=== PATIENT | female | born 1940 | race Caucasian/White ===

== ENCOUNTER 2018-10-20 18:16 | Inpatient (IN) ==
[2018-10-20] MEDS ORDERED: 0.9 % Sodium Chloride 1,000 ML IVC ONE (18:34)
[2018-10-20] MEDS ORDERED: *HR* Metoprolol 5 MG/5 ML VIAL IVP ONE (18:34)
--- NOTE | 2018-10-20 18:52 | Emergency Department Note ---
Disposition Clinical Impression: Hypertensive emergency, Pre-syncope Disposition: Admitted As Inpatient Forms: ED Satisfaction Letter Time of Disposition: 19:59 General Adult HPI - General Chief complaint: ED Weakness Stated complaint: weakness Time Seen by Provider: 10/20/18 18:21 Source: patient, EMS Mode of arrival: EMS Limitations: no limitations Nursing Notes Reviewed: Yes Vital Signs Reviewed: Yes - History of Present Illness HPI Narrative: 78 yo female with past medical history of hypertension, COPD and anxiety presents to the emergency department with the chief complaint of weakness when standing. Patient states that she has had hypertension for many years and takes 3-4 medications on a daily basis to treat this. She was recently taken off her Xanax and has not had it over the past week because her doctor would not refill her prescription. She denies chest pain, shortness of breath, abdominal pain, nausea and vomiting. She has been taking her at-home blood pressure medications but knows her blood pressure has been running higher than normal thinks it could be secondary to her lack of Xanax. She is completely asymptomatic at this time will she is lying flat. Pain Scale: 0 - Related Data Home Medications Medication Instructions Recorded Confirmed Unable To Obtain [Unable to Obtain] 10/20/18 10/20/18 Allergies Allergy/AdvReac Type Severity Reaction Status Date / Time No Known Allergies Allergy Verified 10/20/18 18:36 All systems ED: reviewed and negative except as stated. Review of Systems: As Per HPI Constitutional: Reports: weakness. Denies: fever, chills Eyes: Denies: vision change Cardiovascular: Denies: chest pain, palpitations, dyspnea on exertion Respiratory: Denies: cough, dyspnea, wheezes Gastrointestinal: Denies: abdominal pain, nausea, vomiting Genitourinary: Denies: dysuria, hematuria Musculoskeletal: Denies: back pain, neck pain Integumentary: Denies: rash Neurological: Reports: weakness. Denies: headache, numbness, paresthesias, confusion, abnormal gait Endocrine: Reports: fatigue Past Medical History - Past Medical History Attestation: Yes The following information was validated with the patient. Source: patient Medical history: Reports: asthma, COPD, hypertension Psychiatric history: Reports: anxiety - Social History Smoking Status: Former smoker Smokeless Tobacco Status: No Alcohol use: Reports: none Drug use: Reports: none Physical Exam - General Limitations: no limitations General appearance: alert, in no apparent distress - Head Head exam: atraumatic, normocephalic - Eye Eye exam: Present: normal appearance, EOMI - ENT ENT exam: normal exam, normal oropharynx - Neck Neck exam: Present: normal inspection. Absent: tenderness, lymphadenopathy - Chest Chest inspection: Present: normal inspection. Absent: tenderness, rash - Respiratory Respiratory exam: Present: normal lung sounds bilaterally. Absent: wheezes - Cardiovascular Cardiovascular exam: Present: regular rate, normal rhythm - Abdominal Exam Abdominal exam: Present: soft, Non-Tender. Absent: distention, guarding, rebound, rigidity - Extremities Exam Extremities exam: Present: normal inspection. Absent: tenderness, pedal edema, calf tenderness - Neurological Exam Neurological exam: Present: alert, oriented X3 - Psychiatric Psychiatric exam: Present: normal affect, normal mood - Skin Skin exam: Present: warm, dry, intact Course Vital Signs Temperature 97.8 F 10/20/18 18:26 Pulse Rate 60 10/20/18 18:26 Respiratory Rate 18 10/20/18 18:26 Blood Pressure 221/81 10/20/18 18:26 O2 Sat by Pulse Oximetry 97 10/20/18 18:26 Temperature 97.8 F 10/20/18 18:26 Pulse Rate 57 10/20/18 19:16 Respiratory Rate 18 10/20/18 19:16 Blood Pressure 245/82 10/20/18 19:16 O2 Sat by Pulse Oximetry 98 10/20/18 19:16 Oxygen Delivery Oxygen Delivery Room Air Medical Decision Making - [facility] Narrative Medical decision making narrative: Patient presented with the complaint of weakness and feeling as though she can pass out when she stands up. She has been having difficulty with her blood pressure and she is hypertensive now. We will do a cardiac workup on this patient and give her a dose of hydralazine to try to control her blood pressure. 1954 - patient's EKG shows some subtle ST segment depressions. Her lab work is unremarkable with the exception of a low potassium level. We will replete the potassium. Her blood pressure still elevated at 240/87. We will start the patient on a Cardene drip and admitted to the hospitalist for further workup of her hypertensive emergency. - Medical Records Medical records reviewed: Yes I reviewed the patient's medical records. - Lab Data Lab results reviewed: Yes I reviewed the patient's lab results. Result diagrams: 10/20/18 18:41 10/20/18 18:41 Lab Results 10/20/18 10/20/18 Range/Units 18:41 18:41 WBC 10.4 (4.3-11.1) K/mcL RBC 4.62 (3.82-4.97) M/mcL Hgb 14.0 (11.5-15.4) g/dL Hct 40.5 (35.3-44.9) % MCV 87.7 (83.0-100.0) fL MCH 30.3 (28.0-33.3) pg MCHC 34.6 (31.6-35.5) g/dL RDW 12.6 (11.5-14.5) % Plt Count 267 (140-400) K/mcL MPV 9.2 L (9.4-12.4) fL Immature Gran % 0.5 (0-4) % Seg Neutrophils % 63.2 % Lymphocytes % 23.8 % Monocytes % 11.3 % Eosinophils % 0.6 % Basophils % 0.6 % Neutrophils # 6.6 (1.6-8.9) K/mcL Lymphocytes # 2.5 (0.6-4.6) K/mcL Monocytes # 1.2 (0.0-1.3) K/mcL Eosinophils # 0.1 (0.0-0.6) K/mcL Basophils # 0.1 (0.0-0.2) K/mcL Sodium 139 (136-145) mEq/L Potassium 2.7 L (3.5-5.1) mEq/L Chloride 103 (98-107) mEq/L Carbon Dioxide 28 (23-29) mEq/L BUN 10 (8-23) mg/dL Creatinine 0.78 (0.60-1.20) mg/dL Est GFR ( Amer) > 60 (> 60) Est GFR (Non-Af Amer) > 60 (> 60) BUN/Creatinine Ratio 13 (6-26) Glucose 113 H (70-105) mg/dL Calculated Osmolality 288 (280-300) Calcium 9.1 (8.6-10.3) mg/dL Magnesium 2.0 (1.6-2.6) mg/dL Troponin I < 0.03 (< 0.04) ng/mL - Radiology Data Radiology results reviewed: Yes I reviewed the patient's radiology results. - EKG Data EKG #1 EKG attestation: Yes I reviewed and interpreted this EKG. EKG results narrative: EKG obtained at 18:29 on 10/20/2018 Heart rate 59 bpm, PA interval 178, QRS duration 102, QTC 500, QTC 496 Sinus rhythm with borderline repolarization abnormality and borderline QT prolongation. No signs of ST segment elevation. There are minor ST segment depressions in the lateral and inferior leads. No old EKG for comparison at this time. Attestation Statement - Attestation Attestation: I have seen this patient with the resident physician, I have personally evaluated this patient. I had reviewed the chart and document dictation by the resident physician and aM in agreement with the information documented by the resident physician. Please see documentation by the resident physician for complete chart including past medical history, family medical history, review of systems, current history and physical and laboratory and imaging studies. I was present for all procedures, provided direct supervision for all procedures, was present for the entirety of all procedures and provided direct guidance during the procedures. Please see documentation by the resident physi stu for any procedures performed. I have reviewed all interpretations of EKGs, and reviewed all EKGs performed on patient's as well. I have also reviewed reports of imaging as provided by radiology. Patient presented to the emergency department with chief complaint of not feeling well for the last several days, she states that she seemed to not felt well since her doctor stopped her Xanax and would not give her a refill she has been on this for many years, she states that however over the last couple of days she has felt worse especially with standing up every time she stands up she feels dizzy like she is going to pass out and she gets diaphoretic. She states that was worse today. Patient states that her blood pressure is also been running high at home. She denies fevers chills headache neck pain chest pain or shortness of breath she denies unilateral numbness or weakness but states she just does not feel well. She denies significant urinary symptoms she denies abdominal pain. She denies pain or back. On physical examination alert oriented 3 nontoxic in appearance cranial nerves are intact no focal neurologic findings normal speech. Cardiovascular regular r ate and rhythm although heart rate is borderline bradycardic between 55 and 60, no obvious murmurs rubs or gallops lungs are clear abdomen is soft and nontender without palpable or pulsatile mass. Equal pulses in all 4 extremities skin is warm dry without rash or petechiae. EKG was normal sinus rhythm, sinus bradycardia, borderline ST depression noted in the lateral leads, no old EKG for comparison. Basic laboratory studies were within acceptable limits apart from hypokalemia of 2.7 supplemented with potassium. Patient is typically on hydralazine she was noted to be hypertensive she was gi casa a dose of hydralazine she had not taken it today, and her blood pressure did not significant improve she remained hypertensive with blood pressures of approximately 240/80 at which time she was initiated on a Cardene drip. Patient was admitted to the hospital for further evaluation and management. Total critical care time as provided by myself excluding any procedures performed was 30 minutes in evaluation and management of hypertensive urgency malignant hypertension, and jaws weakness.
[2018-10-20 19:11] LABS: Basophils # 0.1 K/mcL (0.0-0.2); Basophils % 0.6 %; Eosinophils # 0.1 K/mcL (0.0-0.6); Eosinophils % 0.6 %; Hematocrit 40.5 % (35.3-44.9); Immature Granulocytes % 0.5 % (0-4); Lymphocytes # 2.5 K/mcL (0.6-4.6); Lymphocytes % 23.8 %; Mean Corpuscular HGB Conc 34.6 g/dL (31.6-35.5); Mean Corpuscular Hemoglobin 30.3 pg (28.0-33.3); Mean Corpuscular Volume 87.7 fL (83.0-100.0); Mean Platelet Volume 9.2 fL (9.4-12.4); Monocytes # 1.2 K/mcL (0.0-1.3); Monocytes % 11.3 %; Neutrophils # 6.6 K/mcL (1.6-8.9); Platelet Count 267 K/mcL (140-400); Red Blood Count 4.62 M/mcL (3.82-4.97); Red Cell Distribution Width 12.6 % (11.5-14.5); Segmented Neutrophils % 63.2 %; White Blood Count 10.4 K/mcL (4.3-11.1)
[2018-10-20 19:35] LABS: BUN/Creatinine Ratio 13 (6-26); Blood Urea Nitrogen 10 mg/dL (8-23); Calcium 9.1 mg/dL (8.6-10.3); Carbon Dioxide 28 mEq/L (23-29); Chloride 103 mEq/L (98-107); Glucose 113 mg/dL (70-105); Osmolality,Calculated 288 (280-300); Potassium 2.7 mEq/L (3.5-5.1); Sodium 139 mEq/L (136-145); Troponin I < 0.03 ng/mL (< 0.04); eGFR For African Americans > 60 (> 60); eGFR For Non-African Americans > 60 (> 60)
[2018-10-20] MEDS: niCARdipine 20 MG in 0.9 % Sodium Chloride 192 ML IVC SCH (21:26)
[2018-10-21] MEDS: niCARdipine 20 MG in 0.9 % Sodium Chloride 192 ML IVC SCH ×2 (01:57→07:09)
[2018-10-21] MEDS ORDERED: Naloxone 0.4 MG/ML INJ IVP PRN (03:13)
--- NOTE | 2018-10-21 03:20 | Internal Med History&Physical ---
Date of Encounter: 10/21/18 Time of Encounter: 03:04 Internal Medicine - H&P: HPI Chief complaint: Hypertension Admitted From: Emergency Dept Plans for Post Hospital Care: Home History of present illness: Ms. Gonzalez is a 78 year old female Patient presented to the emergency room initially for weakness at home, found to have elevated blood pressure. She has been on medicines at home for her blood pressure, and has a home blood pressure monitor. She does not remember what it was when she checked it at home, but she remembers that her blood pressure was elevated. She has been seen by a primary care physician, and was recently taken off her home Xanax medication. She had an appointment to follow-up with the ysician on October 21 however she came to the emergency room on the instead for further evaluation of her symptoms. She thinks because she has not been on her Xanax that her blood pressure has been difficult to control. In the emergency room patient's initial vital signs: Blood pressure 221/81 o therwise within normal limits CBC: Within normal limits BMP: Notable for a potassium of 2.7, Magnesium 2.0 Troponin undetectable BNP 335 Chest x-ray: Increased lung markings bilaterally She was given a liter of IV fluids, a dose of metoprolol 5 mg then a dose of hydralazine 10 mg. Her blood pressure did not respond. She was started on a Cardene. She is also given 40 mEq of potassium. She was admitted to the hospital for further monitoring. Upon my evaluation, patient is resting comfortably in the hospital bed in no acute distress. She denies chest pain, abdominal pain, nausea, vomiting, diarrhea and constipation. She denies dizziness and vision changes. She indicates that she did have some falls at home previously and was started on different medications that was thought to be contributing. She did have her Xanax discontinued because she says she missed her appointment with her doctor and he did not want to fill it until he saw her again. She is a full code. Past Med Surg Social Fam HX - Past Medical History Medical history: asthma, COPD, hypertension Psychiatric history: anxiety - Past Surgical History Surgical History: hysterectomy - Social History Smoking Status: Former smoker Smokeless Tobacco Status: No Alcohol use: none Drug use: none - Family History Mother Living Status: Still Living Hx Family Cardiac Disorders: Yes (HTN) Maternal Grandmother Hx Family Cardiac Disorders: Yes (HTN) Internal Medicine - H&P: Meds Aspirin [Lo-Dose Aspirin EC] 81 mg PO DAILY 10/21/18 [History] Budesonide/Formoterol 80/4.5 [Symbicort 80/4.5] 0 gm IH BIDR PRN 10/21/18 [History] Cholecalciferol (D-3) [Vitamin D] 5,000 unit PO Q1W 10/21/18 [History] Cyclobenzaprine [Flexeril] 10 mg PO DAILY 10/21/18 [History] FLUoxetine HCl [PROzac] 20 mg PO DAILY 10/21/18 [History] Hydralazine HCl 50 mg PO TID 10/21/18 [History] Irbesartan [Avapro] 300 mg PO DAILY 10/21/18 [History] Metoprolol Tartrate 75 mg PO BID 10/21/18 [History] Rosuvastatin Calcium [Crestor] 10 mg PO DAILY 10/21/18 [History] raNITIdine HCl [Zantac] 150 mg PO BID 10/21/18 [History] Allergy/AdvReac Type Severity Reaction Status Date / Time No Known Allergies Allergy Verified 10/20/18 18:36 All Systems PM: A 10-system review of systems was performed and is negative for pertinent findings except as documented above in the HPI. - Constitutional Vitals: Temp Pulse Resp BP Pulse Ox 97.8 F 63 14 165/71 95 10/20/18 18:26 10/21/18 02:45 10/20/18 23:30 10/21/18 02:45 10/21/18 02:45 General appearance: Present: cooperative, A&O X 3, pleasant, no acute distress, answers questions appropriately Exam: - - Head Head exam: Present: normal inspection - Eye Eye exam: Present: EOMI, normal appearance - Respiratory Respiratory exam: Present: CTAB. Absent: rales, respiratory distress, rhonchi, wheezes - Cardiovascular Cardiovascular exam: Present: RRR. Absent: diastolic murmur, systolic murmur - GI/Abdominal GI/Abdominal exam: Present: normal bowel sounds, soft. Absent: tenderness - Extremities Exam Extremities exam: Present: warm, radial pulses palpable and symmetrical. Absent: calf tenderness, pedal edema, tenderness - Neurological Exam Neurological exam: Present: motor sensory deficit, no focal deficits, strengths equal and symetr throughout. Absent: facial droop, speech deficit - Skin Skin exam: Present: dry, normal color, warm Internal Med - H&P Results - Labs CBC & Chem 7: 10/20/18 18:41 10/20/18 18:41 Labs: Short CBC 10/20/18 Range/Units 18:41 WBC 10.4 (4.3-11.1) K/mcL Hgb 14.0 (11.5-15.4) g/dL Hct 40.5 (35.3-44.9) % Plt Count 267 (140-400) K/mcL Neutrophils # 6.6 (1.6-8.9) K/mcL BMP 10/20/18 18:41 Sodium 139 Potassium 2.7 L Chloride 103 Carbon Dioxide 28 BUN 10 Creatinine 0.78 Glucose 113 H Calcium 9.1 Cardiac Enzymes 10/20/18 Range/Units 18:41 Troponin I < 0.03 (< 0.04) ng/mL - Impressions ITS Impressions Chest X-Ray 10/20/18 18:34 IMPRESSION: Increased lung markings at the bilaterally, may be related to mild bronchitis. D/ / Roni Horton MD / Roni Horton MD Interpreting Provider: Roni Horton MD - Assessment and Plan (1) Hypertensive emergency Current Visit: Yes Status: Acute Assessment and plan: Blood pressure elevated in the emergency room at 221/81. Patient was started on a Cardene drip, currently her blood pressure is 167/66. She does have a history of hypertension, and takes oral medications at home including hydralazine, Irbesartan and metoprolol. Continue Cardene drip Monitor blood pressures closely Consider adjusting home medications (2) Hypokalemia Current Visit: Yes Status: Acute Assessment and plan: Potassium was 2.7 in the emergency room. She was given 40 mEq in the emergency room. Repeat labs in the morning Replete as needed (3) Pre-syncope Current Visit: Yes Status: Acute Assessment and plan: Patient had some falls at home previously but also felt dizzy over the last day or 2. Could be secondary to elevated blood pressure and medication adjustments. Treating hypertension as above Consider physical therapy consultation patient still having syncopal episodes (4) DVT prophylaxis Current Visit: Yes Status: Acute Assessment and plan: SCDs - Time Spent With Patient Total time spent is greater than 50% in coordination of care (as documented) at patient's floor/unit and/or counseling patient: Greater than 35 minutes
[2018-10-21] MEDS: Acetaminophen 325 MG TABLET PO PRN ×3 (03:30→23:40)
[2018-10-21 04:39] LABS: Hematocrit 39.2 % (35.3-44.9); Hemoglobin 13.2 g/dL (11.5-15.4); Mean Corpuscular HGB Conc 33.7 g/dL (31.6-35.5); Mean Corpuscular Hemoglobin 29.7 pg (28.0-33.3); Mean Corpuscular Volume 88.3 fL (83.0-100.0); Mean Platelet Volume 9.1 fL (9.4-12.4); Platelet Count 226 K/mcL (140-400); Red Blood Count 4.44 M/mcL (3.82-4.97); Red Cell Distribution Width 12.6 % (11.5-14.5); White Blood Count 11.5 K/mcL (4.3-11.1)
[2018-10-21 05:00] LABS: BUN/Creatinine Ratio 12 (6-26); Blood Urea Nitrogen 11 mg/dL (8-23); Calcium 8.7 mg/dL (8.6-10.3); Carbon Dioxide 25 mEq/L (23-29); Chloride 106 mEq/L (98-107); Glucose 108 mg/dL (70-105); Osmolality,Calculated 294 (280-300); Potassium 2.9 mEq/L (3.5-5.1); Sodium 142 mEq/L (136-145); eGFR For African Americans > 60 (> 60); eGFR For Non-African Americans > 60 (> 60)
[2018-10-21] MEDS ORDERED: Cholecalciferol (D-3) 1,000 UNIT TABLET PO SCH (07:30)
[2018-10-21] MEDS: hydrALAZINE 25 MG TABLET PO SCH ×3 (08:16→20:00)
[2018-10-21] MEDS: Aspirin Enteric Coated 81 MG Tablet PO SCH (08:17)
[2018-10-21] MEDS: Famotidine 20 MG TABLET PO SCH ×2 (08:17→20:01)
--- NOTE | 2018-10-21 09:53 | Event Note ---
Date of Encounter: 10/21/18 Time of Encounter: 08:00 Patient was seen and examined bedside. Reports that she was found to have elevated blood pressures at home with her blood pressure machine and its been going on for at least the past week. She reports that she was recently taken off her Xanax by her primary care physician and she has been unable to get in touch with him over the phone so she has made an appointment for October 21. Yesterday her blood pressures continue to be elevated despite her taking all her medications as prescribed so she decided to come to the emergency department for further evaluation. She denies chest pain, shortness of breath, nausea, vomiting or diarrhea Vital signs reviewed Regular rate and rhythm, S1 and S2, could not appreciate any murmurs Chest clear to auscultation bilaterally No acute distress, alert and oriented 3, moves all extremities No edema of the lower extremities A/P Hypertensive urgency BP on arrival 221/81 Hypokalemia was replaced Was started on the cart up in drip will taper off Continue all of home medications will adjust as per BP is Echocardiogram
[2018-10-21] MEDS: FLUoxetine 20 MG CAPSULE PO SCH (10:00)
[2018-10-21] MEDS: Budesonide/Formoterol 80/4.5 MDI IH SCH ×2 (10:53→20:31)
[2018-10-21] MEDS: *HR* Heparin 5,000 UNIT/ML VIAL SQ SCH ×2 (11:30→20:05)
--- NOTE | 2018-10-21 12:40 | Electrocardiograph Report ---
[address] [place], [place] [address] Test Date: 2018-10-20 Pat Name: Lizz Gonzalez Department: [id number] Room: 2N03 Gender: F Network Communications Engineer: : [id number] Requested By: Janice Machado Order Number: [id number] Reading MD: Carmelina Bowie Measurements Intervals [place] Rate: 59 P: 79 [place]: 178 QRS: 57 QRSD: 102 T: 79 QT: 500 QTc: 496 Interpretive Statements Sinus rhythm Borderline repolarization abnormality Borderline prolonged QT interval Electronically Signed On 10-21-2018 12:39:06 EDT by Carmelina Bowie
[2018-10-21 22:03] LABS: Bilirubin,Urine Negative (Negative); Blood,Urine Negative (Negative); Clarity,Urine Clear (Clear); Color,Urine Yellow (Yellow); Glucose,Urine (UA) Normal (Normal); Ketones,Urine Negative (Negative); Leukocyte Esterase,Urine Negative (Negative); Nitrite,Urine Negative (Negative); Protein,Urine Trace mg/dL (Neg-Trace); Specific Gravity,Urine 1.015 (1.010-1.025); Urobilinogen,Urine Normal (Normal)
[2018-10-21] MEDS: *HR* Metoprolol 5 MG/5 ML VIAL IVP PRN (23:41)
[2018-10-21] MEDS ORDERED: ALPRAZolam 1 MG TABLET PO ONE (23:42)
[2018-10-22 01:49] LABS: Hematocrit 36.1 % (35.3-44.9); Mean Corpuscular HGB Conc 33.2 g/dL (31.6-35.5); Mean Corpuscular Hemoglobin 30.5 pg (28.0-33.3); Mean Corpuscular Volume 91.9 fL (83.0-100.0); Mean Platelet Volume 9.3 fL (9.4-12.4); Platelet Count 212 K/mcL (140-400); Red Blood Count 3.93 M/mcL (3.82-4.97); Red Cell Distribution Width 12.7 % (11.5-14.5); White Blood Count 9.9 K/mcL (4.3-11.1)
[2018-10-22 02:09] LABS: BUN/Creatinine Ratio 20 (6-26); Blood Urea Nitrogen 16 mg/dL (8-23); Calcium 9.1 mg/dL (8.6-10.3); Carbon Dioxide 24 mEq/L (23-29); Chloride 107 mEq/L (98-107); Glucose 148 mg/dL (70-105); Osmolality,Calculated 292 (280-300); Potassium 3.7 mEq/L (3.5-5.1); Sodium 139 mEq/L (136-145); eGFR For African Americans > 60 (> 60); eGFR For Non-African Americans > 60 (> 60)
[2018-10-22] MEDS: *HR* Heparin 5,000 UNIT/ML VIAL SQ SCH ×3 (03:25→19:33)
[2018-10-22] MEDS: NIFEdipine 10 MG CAPSULE PO SCH ×3 (08:01→19:34)
[2018-10-22] MEDS: Aspirin Enteric Coated 81 MG Tablet PO SCH (08:02)
[2018-10-22] MEDS: Furosemide 20 MG TABLET PO SCH (08:02)
[2018-10-22] MEDS: Famotidine 20 MG TABLET PO SCH ×2 (08:02→19:34)
[2018-10-22] MEDS: FLUoxetine 20 MG CAPSULE PO SCH (08:03)
[2018-10-22] MEDS ORDERED: Nitroglycerin 0.4 MG TAB.SUBL SL PRN (08:08)
[2018-10-22] MEDS: Budesonide/Formoterol 80/4.5 MDI IH SCH ×2 (08:09→20:08)
[2018-10-22] MEDS: *HR* Metoprolol 5 MG/5 ML VIAL IVP PRN (08:21)
--- NOTE | 2018-10-22 13:20 | Internal Med Progress Note ---
Hospitalist Progress Note - Encounter Date of Encounter: 10/22/18 Time of Encounter: 08:00 - Subjective Interval History: Patient was seen and examined at bedside. Denies dizziness, nausea, vomiting or diarrhea. Denies chest pain or palpitations. With that she felt dizzy at home secondary to the Flexeril that was started by her primary care physician which was later stopped. She denies vision changes or shortness of breath. Tolerating by mouth diet. - Exam Vitals: Temp Pulse Resp BP Pulse Ox 99.3 F 85 16 165/74 96 10/22/18 07:44 10/22/18 10:56 10/22/18 10:56 10/22/18 10:56 10/22/18 08:12 Exam: General: Patient is alert, oriented, no acute distress, Head: atraumatic, normocephalic, Eye: normal appearance, PERRL, no scleral icterus, no conjunctival injection ENT: mucous membranes moist, normal external ear exam Neck: normal inspection, trachea midline, full ROM, Chest: normal inspection, symmetric chest rise Respiratory: Good respiratory effort. Bilateral breath sounds are clear without wheezing, crackles, or rhonchi. Cardiovascular: Regular rate and rhythm. s1 and s2 No clicks, rubs, gallops, or murmors. Abdomen: Bowel sounds present normoactive x-4 quadrants. Abdomen is soft, nondistended. no Epigastric tenderness. No guarding or rebound. No organomegaly noted, obese musculoskeletal: Spontaneously moving all extremities. no edema, no calf tenderness Skin: warm, dry, intact. Neuro: Alert and oriented x3. Sensation light touch intact. Cranial nerves 2- 12 is intact. Not aphasic, gait is steady, rapid hand movements intact, [id number] intact, Psych: Patient's affect is normal - Assessment and Plan (1) Hypertensive emergency Current Visit: Yes Status: Acute Assessment and Plan: Blood pressure elevated in the emergency room at 221/81. Patient was started on a Cardene drip- chest discontinued metoprolol was changed to Coreg for better blood pressure control Hydralazine was discontinued and she was started on Procardia we will adjust as per blood pressure She was started on Lasix 20 mg by mouth daily Continue with home dose losartan Her blood pressure has improved to 165/74 If blood pressure continues to remain unstable will consult nephrology (2) Pre-syncope Current Visit: Yes Status: Acute Assessment and Plan: Patient had some falls at home previously but also felt dizzy over the last day or 2 and reports that this was after she started taking Flexeril All her symptoms resolved after she stopped taking Flexeril Physical therapy consulted (3) Hypokalemia Current Visit: Yes Status: Acute Assessment and Plan: Replaced and resolved (4) DVT prophylaxis Current Visit: Yes Status: Acute Assessment and Plan: heparin sc - Time Spent with Patient Total time spent is greater than 50% in coordination of care (as documented) at patient's floor/unit and/or counseling patient: 25 - 35 minutes Plan of Care Discussed with: patient Internal Medicine: Result - Labs CBC & Chem 7: 10/22/18 00:38 10/22/18 00:38 Labs: Short CBC 10/22/18 Range/Units 00:38 WBC 9.9 (4.3-11.1) K/mcL Hgb 12.0 (11.5-15.4) g/dL Hct 36.1 (35.3-44.9) % Plt Count 212 (140-400) K/mcL BMP 10/21/18 10/22/18 16:26 00:38 Sodium 139 Potassium 4.5 D 3.7 Chloride 107 Carbon Dioxide 24 BUN 16 Creatinine 0.82 Glucose 148 H Calcium 9.1 Urine 10/21/18 Range/Units 21:40 Urine Color Yellow (Yellow) Urine Clarity Clear (Clear) Urine pH 7.0 (5.0-8.0) pH Units Ur Specific [place] 1.015 (1.010-1.025) Urine Protein Trace (Neg-Trace) mg/dL Urine Glucose (UA) Normal (Normal) mg/dL - Impressions Impressions Echocardiogram 10/21/18 09:52 Impressions: LVEF 60-65%. Normal LV chamber size and function. Basal sigmoid septum. Mild left ventricular diastolic dysfunction. Normal right ventricular structure and function. No significant valvular dysfunction. Mild-moderate pulmonary hypertension. Estimated RVSP is 45 mmHg. Left Ventricular Wall Motion: Rest Echo Findings All wall segments showed normal motion. Findings: Study Quality * Technically adequate exam. ECG Findings * Normal sinus rhythm. Left Ventricle * LVEF 60-65%. * Normal LV chamber size and function. * Basal sigmoid septum. * Mild left ventricular diastolic dysfunction. Right Ventricle * Normal right ventricular structure and function. Left Atrium * Moderately dilated left atrium. Right Atrium * Normal right atrial size. Interatrial Septum * Interatrial septum not well evaluated. Aortic Valve * Trileaflet aortic valve. * No aortic regurgitation. * No aortic stenosis. Mitral Valve * Normal mitral valve structure and function. * No mitral stenosis. * Trace mitral regurgitation. Tricuspid Valve * Normal tricuspid valve structure and function. * Trace tricuspid regurgitation. * Mild-moderate pulmonary hypertension. * Estimated RVSP is 45 mmHg. * Estimated RA pressure is 5 mmHg. Pulmonic Valve * Normal pulmonic valve structure and function. * No pulmonic regurgitation. Aorta * Normally sized aortic root. Pericardium * The pericardium appears normal. IVC * Normal IVC dimensions and inspiratory collapse. Pulmonary Artery * Normal visualized portions of the main pulmonary artery. Consult Discharge Plan - Plan Referrals: Vick Ortega MD [Primary Care Provider] - (Office will call patient at home with follow up appointment Per Laura)
[2018-10-22] MEDS: Acetaminophen 325 MG TABLET PO PRN (19:34)
[2018-10-23] MEDS: *HR* Heparin 5,000 UNIT/ML VIAL SQ SCH ×2 (05:52→13:05)
[2018-10-23] MEDS: Acetaminophen 325 MG TABLET PO PRN (06:00)
[2018-10-23] MEDS: Budesonide/Formoterol 80/4.5 MDI IH SCH (07:29)
[2018-10-23] MEDS: Aspirin Enteric Coated 81 MG Tablet PO SCH (07:56)
[2018-10-23] MEDS: FLUoxetine 20 MG CAPSULE PO SCH (07:56)
[2018-10-23] MEDS: Furosemide 20 MG TABLET PO SCH (07:56)
[2018-10-23] MEDS: Famotidine 20 MG TABLET PO SCH (07:56)
[2018-10-23 08:28] LABS: Estimated Average Glucose 105 mg/dl
[2018-10-23] MEDS ORDERED: NIFEdipine XL (24 HR) 60 MG TAB.ER.24 PO SCH (09:00)
--- NOTE | 2018-10-23 13:09 | Nephrology Consult Note ---
Date of Encounter: 10/23/18 Time of Encounter: 10:40 Assessment and Plan (1) Hypertension Status: Acute Acutely elevated on chronic hypertension. At this early point, I suspect the elevation today is multifactorial from all of the NSAIDs she was taking just prior to admission, and her back/ankle pains. I see that she is being discharged, which is reasonable since her BPs are improving already, and I be happy to see her for outpatient follow-up to arrange for further workup of any potential secondary hypertension etiologies. Discussed with the hospitalist. Thank you for having consulted the [facility]. Qualifiers: Hypertension type: unspecified Qualified Code(s): I10 - Essential (primary) hypertension History of Present Illness - Reason for Consult Consult date: 10/23/18 accelerated hypertension Requesting physician: Masha Bunn - Chief Complaint HTN - History of Present Illness The patient was a very pleasant 78-year-old female with a past medical history of hypertension and etc. She has been in the hospital for a few days, and Nephrology was consulted today to help assist with blood pressure. She did not affirm having a headache, but but did report having long-standing back pain, which she thinks is worsening her blood pressure. She also did not affirm having seen any previous web analytics developer, but she did affirm that she was taking NSAIDs. She recently hurt her ankle as well. She is not had previous gout. Her PCP is Dr. Valladares in [place], [place]. She did not affirm having edema either. Family History: She did not affirm having any first-degree relatives with a history of ESRD Past Med Surg Social Fam HX - Past Medical History Medical history: asthma, COPD, hypertension Psychiatric history: anxiety - Past Surgical History Surgical History: hysterectomy - Social History Smoking Status: Former smoker Smokeless Tobacco Status: No Alcohol use: none Drug use: none - Family History Mother Living Status: Still Living Hx Family Cardiac Disorders: Yes (HTN) Maternal Grandmother Hx Family Cardiac Disorders: Yes (HTN) Medications and Allergies Albuterol Sulfate [Ventolin Hfa] 2 puff PO Q4H PRN 10/21/18 [History] Aspirin [Lo-Dose Aspirin EC] 81 mg PO DAILY 10/21/18 [History] Budesonide/Formoterol 80/4.5 [Symbicort 80/4.5] 2 puff IH BIDR PRN 10/21/18 [History] Ergocalciferol (VITAMIN D2) [Vitamin D2] 50,000 units PO QWEEK 10/21/18 [History] FLUoxetine HCl [Prozac] 20 mg PO DAILY 10/21/18 [History] Irbesartan [Avapro] 300 mg PO DAILY 10/21/18 [History] Nitroglycerin [Nitrostat] 0.4 mg SL Q5MIN PRN MDD X3 DOSES CALL 911 10/21/18 [History] Rosuvastatin Calcium [Crestor] 10 mg PO DAILY 10/21/18 [History] Tiotropium [place] [Spiriva Respimat] 5 mcg IH DAILY 10/21/18 [History] raNITIdine HCl [Zantac] 150 mg PO BID 10/21/18 [History] Acetaminophen [Tylenol] 650 mg PO Q4H PRN #30 tablet 10/23/18 [Rx] Carvedilol [Coreg] 12.5 mg PO BIDWM #90 tablet 10/23/18 [Rx] Furosemide [Lasix] 20 mg PO DAILY #30 tablet 10/23/18 [Rx] NIFEdipine XL (24 HR) [Procardia XL] 60 mg PO DAILY #30 tab.er.24 10/23/18 [Rx] Allergy/AdvReac Type Severity Reaction Status Date / Time No Known Allergies Allergy Verified 10/20/18 18:36 Review of Systems All Systems: reviewed and no additional remarkable complaints except as stated Exam - Vital Signs Vital signs: Initial Vital Signs Temp Pulse Resp BP Pulse Ox 97.8 F 60 18 221/81 97 10/20/18 18:26 10/20/18 18:26 10/20/18 18:26 10/20/18 18:26 10/20/18 18:26 Vital Signs - Last 8 Hours Temp Pulse Resp BP Pulse Ox 10/23/18 10:50 66 152/73 98 10/23/18 09:55 148/76 10/23/18 07:30 16 98 10/23/18 06:29 97.5 F L 74 183/79 98 Intake and Output 10/22/18 10/23/18 10/23/18 23:59 07:59 15:59 Intake Total 120 / 600 100 / 460 360 / 460 Output Total 125 / 125 0 / 0 Balance -5 / 475 100 / 460 360 / 460 Intake: Oral 120 / 600 100 / 460 360 / 460 Output: Urine 125 / 125 0 / 0 Other: Meal Dinner Breakfast Percent of Meal Consumed 100% 100% # Voids 1 Weight 70.4 kg Patient Weight 10/23/18 23:59 Weight 70.4 kg - General Appearance General appearance: well-developed, well-nourished, appears started age, obese EENT: ATNC, PERRL, mucous membranes moist Neck: supple Respiratory: clear Cardiology: edema (none tense puffy ankle swelling bilaterally), regular rate, regular rhythm, normal S1, normal S2 Gastrointestinal: normoactive bowel sounds, no tenderness, no guarding Integumentary: no rash, warm and dry Neurologic: no focal deficit, no asterixis, alert and oriented x3 Musculoskeletal: no deformities, no erythema, no cyanosis Psychiatric: mood/affect appropriate, cooperative Results - Lab Results 10/22/18 00:38 10/22/18 00:38 Consult Discharge Plan - Plan Instructions: Nifedipine (By mouth), Furosemide (By mouth), Acetaminophen (By mouth), Carvedilol (By mouth), Chronic Hypertension (DC), Hypertensive Crisis (DC) Referrals: Vick Ortega MD [Primary Care Provider] - 10/28/18 8:15 am (Office will call patient at home with follow up appointment Per Laura) Jeremy Aguilar DO [Partnered Physician] - 11/20/18 2:00 pm Prescriptions: Carvedilol [Coreg] 12.5 mg PO BIDWM #90 tablet Furosemide [Lasix] 20 mg PO DAILY #30 tablet NIFEdipine XL (24 HR) [Procardia XL] 60 mg PO DAILY #30 tab.er.24 Acetaminophen [Tylenol] 650 mg PO Q4H PRN #30 tablet PRN Reason: Headache
[2018-10-23 15:05] VITALS: BP 137/67
--- NOTE | 2018-10-23 15:27 | Discharge Summary ---
- NOTES TO OUTPATIENT PROVIDER Notes to Outpatient Provider: follow up with youtr PCP and take blood pressure log with you for further adjustment of your BP medications. repeat BMP and EKG in one week Date of Encounter: 10/23/18 Time of Encounter: 15:24 - Discharge Diagnosis (1) Hypertensive emergency Priority: Primary Status: Acute (2) Pre-syncope Priority: Secondary Status: Acute (3) Hypokalemia Priority: Secondary Status: Acute (4) DVT prophylaxis Priority: Secondary Status: Acute Hospital course: "Ms. Gonzalez is a 78 year old female Patient presented to the emergency room initially for weakness at home, found to have elevated blood pressure. She has been on medicines at home for her blood pressure, and has a home blood pressure monitor. She does not remember what it was when she checked it at home, but she remembers that her blood pressure was elevated. She has been seen by a primary care physician, and was recently taken off her home Xanax medication. She had an appointment to follow-up with the physician on October 21 however she came to the emergency room on the instead for further evaluation of her symptoms. She thinks because she has not been on her Xanax that her blood pressure has been difficult to control. In the emergency room patient's initial vital signs: Blood pressure 221/81 otherwise within normal limits CBC: Within normal limits BMP: Notable for a potassium of 2.7, Magnesium 2.0 Troponin undetectable BNP 335 Chest x-ray: Increased lung markings bilaterally She was given a liter of IV fluids, a dose of metoprolol 5 mg then a dose of hydralazine 10 mg. Her blood pressure did not respond. She was started on a Cardene. She is also given 40 mEq of potassium. She was admitted to the hospital for further monitoring. Upon my evaluation, patient is resting comfortably in the hospital bed in no acute distress. She denies chest pain, abdominal pain, nausea, vomiting, diarrhea and constipation. She denies dizziness and vision changes. She indicates that she did have some falls at home previously and was started on different medications that was thought to be contributing. She did have her Xanax discontinued because she says she missed her appointment with her doctor and he did not want to fill it until he saw her again. She is a full code." patient presented with above presentation and had above ED course. as per patient she has had elevated BP for a few weeks and has tried to make appointments with her PCP however was unable to do so. she was started on nicardipine drip with improvement of her blood pressure. EKG showed prolonged QT on admission as she was hypokalemic 2.7. potassium was replaced, magensium 2. she was monitored on telemetry without significant arrhythmias. her home medi cations were resumed however she continued to have elevated blood pressure. blood pressure medications were changed ( metoprolol to coreg and hydralazine to nifedipine XL and lasix was added) her BP improved to 137/67. nephrology was consulted and it was recommended for her to follow up with them as OP. she denies ever being dizzy and did not have any neurological deficit on admission or through out hospitalization. she reported that her light headedness was secondary to lexeril that she was prescribed and took and all her symptoms resolved once she stopped the medication. she had no cerebellar signs ( rhomberg negative, pronator drift negative, rapid hand movements intact, finger to nose intact, gairt was steady). she understands to log her blood pressures and take the log to PCP and nephrology for further adjustment of her medications. if she develops accelerated HTn again she is to come to the ED. discussed diet, salt intake in depth. she is to have her BMP and EKG repeated in one week for electrolytes and QT . TTE: Impressions: LVEF 60-65%. Normal LV chamber size and function. Basal sigmoid septum. Mild left ventricular diastolic dysfunction. Normal right ventricular structure and function. No significant valvular dysfunction. Mild-moderate pulmonary hypertension. Estimated RVSP is 45 mmHg. CXR: IMPRESSION: Increased lung markings at the bilaterally, may be related to mild bronchitis. Discharge discussed with: patient, nurse, medical sales consultant - Time Spent with Patient Total time spent providing and/or coordinating discharge services: Time spent: Greater than 30 minutes (35) - Discharge Medications Prescriptions: New Carvedilol [Coreg] 12.5 mg PO BIDWM #90 tablet Furosemide [Lasix] 20 mg PO DAILY #30 tablet NIFEdipine XL (24 HR) [Procardia XL] 60 mg PO DAILY #30 tab.er.24 Acetaminophen [Tylenol] 650 mg PO Q4H PRN #30 tablet PRN Reason: Headache Continued raNITIdine HCl [Zantac] 150 mg PO BID FLUoxetine HCl [Prozac] 20 mg PO DAILY Budesonide/Formoterol 80/4.5 [Symbicort 80/4.5] 2 puff IH BIDR PRN PRN Reason: Shortness Of Breath Irbesartan [Avapro] 300 mg PO DAILY Rosuvastatin Calcium [Crestor] 10 mg PO DAILY Aspirin [Lo-Dose Aspirin EC] 81 mg PO DAILY Albuterol Sulfate [Ventolin Hfa] 2 puff PO Q4H PRN PRN Reason: Shortness Of Breath Ergocalciferol (VITAMIN D2) [Vitamin D2] 50,000 units PO QWEEK Nitroglycerin [Nitrostat] 0.4 mg SL Q5MIN PRN MDD X3 DOSES CALL 911 PRN Reason: Chest Pain Tiotropium [place] [Spiriva Respimat] 5 mcg IH DAILY Discontinued Hydralazine HCl 50 mg PO TID Cyclobenzaprine [Flexeril] 10 mg PO DAILY Ibuprofen [Ibu] 800 mg PO TID PRN PRN Reason: Pain Metoprolol Tartrate 75 mg PO BID Home Medications: Albuterol Sulfate [Ventolin Hfa] 2 puff PO Q4H PRN 10/21/18 [History] Aspirin [Lo-Dose Aspirin EC] 81 mg PO DAILY 10/21/18 [History] Budesonide/Formoterol 80/4.5 [Symbicort 80/4.5] 2 puff IH BIDR PRN 10/21/18 [History] Ergocalciferol (VITAMIN D2) [Vitamin D2] 50,000 units PO QWEEK 10/21/18 [History] FLUoxetine HCl [Prozac] 20 mg PO DAILY 10/21/18 [History] Irbesartan [Avapro] 300 mg PO DAILY 10/21/18 [History] Nitroglycerin [Nitrostat] 0.4 mg SL Q5MIN PRN MDD X3 DOSES CALL 911 10/21/18 [History] Rosuvastatin Calcium [Crestor] 10 mg PO DAILY 10/21/18 [History] Tiotropium [place] [Spiriva Respimat] 5 mcg IH DAILY 10/21/18 [History] raNITIdine HCl [Zantac] 150 mg PO BID 10/21/18 [History] Acetaminophen [Tylenol] 650 mg PO Q4H PRN #30 tablet 10/23/18 [Rx] Carvedilol [Coreg] 12.5 mg PO BIDWM #90 tablet 10/23/18 [Rx] Furosemide [Lasix] 20 mg PO DAILY #30 tablet 10/23/18 [Rx] NIFEdipine XL (24 HR) [Procardia XL] 60 mg PO DAILY #30 tab.er.24 10/23/18 [Rx] Allergies/Adverse Reactions: Allergy/AdvReac Type Severity Reaction Status Date / Time No Known Allergies Allergy Verified 10/20/18 18:36 Date of admission: 10/20/18 22:15 Primary care physician: Vick Ortega MD Consults: 10/23/18 07:40 Consult to Nephrology [CONS] Routine Consulting Provider: Kidney Lexie/SILVINO/POP/ANA Reason for Consult: extremely difficult to control hypertension - came in with hypertesive urgency Call Completed: No - Constitutional Vitals: Temp Pulse Resp BP Pulse Ox 97.5 F L 69 16 137/67 97 10/23/18 06:29 10/23/18 15:03 10/23/18 07:30 10/23/18 15:03 10/23/18 15:03 Exam: General: Patient is alert, oriented, no acute distress, Head: atraumatic, normocephalic, Eye: normal appearance, PERRL, no scleral icterus, no conjunctival injection ENT: mucous membranes moist, normal external ear exam Neck: normal inspection, trachea midline, full ROM, Chest: normal inspection, symmetric chest rise Respiratory: Good respiratory effort. Bilateral breath sounds are clear without wheezing, crackles, or rhonchi. Cardiovascular: Regular rate and rhythm. s1 and s2 No clicks, rubs, gallops, or murmors. Abdomen: Bowel sounds present normoactive x-4 quadrants. Abdomen is soft, nondistended. no Epigastric tenderness. No guarding or rebound. No organomegaly noted, obese musculoskeletal: Spontaneously moving all extremities. no edema, no calf tenderness Skin: warm, dry, intact. Neuro: Alert and oriented x3. Sensation light touch intact. Cranial nerves 2- 12 is intact. Not aphasic, gait is steady, rapid hand movements intact, [id number] intact, Psych: Patient's affect is normal - Patient Status Disposition: Home, Self-Care Condition: Good Functional capacity at discharge: independent ambulation Overall status at discharge: patient is back to baseline - Discharge Instructions Follow Up With: Vick Ortega MD [Primary Care Provider] - 10/28/18 8:15 am (Office will call patient at home with follow up appointment Per Laura) Jeremy Aguilar DO [Partnered Physician] - 11/20/18 2:00 pm - Diet and Activity Activity: increase activity as tolerated Diet: low salt diet
== END 2018-10-23 18:49 | disposition home or self-care (01) | DRG 305 ==
LOC: EMEROOARM 18:16 → 2NNU 22:15 → 2NENU 10-22 10:51
PROVIDERS: ADMIT Family Medicine; ATTEND Family Medicine